=== PATIENT | female | born 1960 | race Caucasian/White ===

== ENCOUNTER 2019-11-02 05:22 | Emergency (ER) | payer MEDICAID, OTHER ==
[~2019-11-02] VITALS: Ht 162.6 cm; Wt 63.0 kg
[2019-11-02] MEDS ORDERED: KETOROLAC 30MG/ML VIAL IM ONE (06:45)
[2019-11-02] MEDS ORDERED: ACETAMINOPHEN 325MG TABLET PO ONE (08:30)
[2019-11-02 08:50] VITALS: BP 128/72
== END 2019-11-02 09:10 | disposition home or self-care (01) ==
LOC: ER 05:43
DX: S20.219A Contusion of unspecified front wall of thorax, initial encounter (principal); E11.9 Type 2 diabetes mellitus without complications; V43.62XA Car passenger injured in collision with other type car in traffic accident, initial encounter; Y93.9 Activity, unspecified; Y92.410 Unspecified street and highway as the place of occurrence of the external cause
CPT/HCPCS: 71110; 96372; 99283; J1885